=== PATIENT | female | born 1940 | race Caucasian/White ===

== ENCOUNTER 2017-11-09 15:58 | Emergency (ER) | payer MEDICARE ==
[~2017-11-09] VITALS: Ht 165.1 cm; Wt 62.6 kg
--- NOTE | 2017-11-09 16:30 | NUR ---
SENT BY DR LARIOS FOR PICCLINE PLACEMENT, NAD NOTED, VSS, RESP EVEN AND UNLABORED, WAITING FOR MD SANTOS.
--- NOTE | 2017-11-09 17:03 | NUR ---
Mynor lal in ED - 11/09/17 at 1704 by EZIO MID LINE NURSE AT THE BEDSIDE. MID LINE INSERTION ALMOST COMPLETE.
--- NOTE | 2017-11-09 17:03 | NUR ---
PICC LINE NURSE AT THE BEDSIDE. PICC LINE INSERTION ALMOST COMPLETE.
--- NOTE | 2017-11-09 17:23 | NUR ---
CXR IN PROGRESS AT THE BEDSIDE TO CONFIRM PLACEMENT OF PICC LINE.
[2017-11-09 17:24] LABS: BASOPHILS % (AUTO) 0.4 % (0.0-2.0); EOSINOPHILS % (AUTO) 0.6 % (0.0-6.0); HEMATOCRIT 30 % (33-45); HEMOGLOBIN 10.5 g/dL (11.5-14.8); LYMPHOCYTES # (AUTO) 1.2 /CMM (0.8-4.8); LYMPHOCYTES % (AUTO) 14.4 % (20.0-44.0); MEAN CORPUSCULAR HEMOGLOBIN 32 PG (26.0-33.0); MEAN CORPUSCULAR HGB CONC 35 g/dl (31.0-36.0); MEAN CORPUSCULAR VOLUME 93 fL (82-100); MONOCYTES # (AUTO) 0.4 /CMM (0.1-1.30); MONOCYTES % (AUTO) 5.1 % (2.0-12.0); NEUTROPHILS # (AUTO) 6.6 /CMM (1.8-8.9); NEUTROPHILS % (AUTO) 79.5 % (43.0-81.0); PLATELET COUNT (AUTO) 122 /CMM (150-450); RDW COEFFICIENT OF VARIATION 18.8 (11.5-15.0); RED BLOOD CELL COUNT(AUTO) 3.27 MIL/uL (4.0-5.2); WHITE BLOOD COUNT (AUTO) 8.2 K/uL (4.3-11.0)
--- NOTE | 2017-11-09 17:26 | NUR ---
PT LEFT FOR CT VIA RNEY
[2017-11-09 17:46] LABS: CALCIUM, SERUM 9.8 mg/dL (8.5-10.1); CARBON DIOXIDE 26 mmol/L (21-32); CHLORIDE 102 mmol/L (98-107); CREATININE 0.9 mg/dL (0.6-1.3); GLUCOSE 106 mg/dL (74-106); POTASSIUM 2.9 mmol/L (3.5-5.1); SODIUM SERUM 140 mmol/L (136-145); UREA NITROGEN, BLOOD 18 mg/dL (7-18)
--- NOTE | 2017-11-09 17:46 | NUR ---
PT RETURNED FROM CT.
[2017-11-09 17:49] LABS: TROPONIN I < 0.017 ng/mL (0.00-0.056)
[2017-11-09 17:50] LABS: BILIRUBIN,DIRECT 0.3 mg/dL (0.0-0.2); BILIRUBIN,TOTAL 1.1 mg/dL (0.2-1.0)
[2017-11-09 17:51] LABS: ALANINE AMINOTRANSFERASE 16 U/L (12-78); ALBUMIN 2.8 g/dL (3.4-5.0); ALKALINE PHOSPHATASE 118 U/L (46-116); ASPARTATE AMINOTRANSFERASE 25 U/L (15-37); TOTAL PROTEIN, SERUM 5.6 g/dL (6.4-8.2)
[2017-11-09 18:03] LABS: INR 1.1 (0.87-1.13)
[2017-11-09 18:24] LABS: BAND % (MANUAL) 2 % (0.0-5.0); LYMPHOCYTES % (MANUAL) 24 % (16-48); MONOCYTES % (MANUAL) 8 % (0-11.0); NEUTROPHILS % (MANUAL) 66 (42-76)
[2017-11-09] MEDS ORDERED: IOHEXOL-350 100 ML VIAL IV ONE (18:24)
[2017-11-09] MEDS ORDERED: IV NS 0.9% 250 ML IV ONE (18:25)
[2017-11-09] MEDS ORDERED: POTASSIUM CHLORIDE 20 MEQ TAB.PRT.SR PO ONE ×3 (18:30→18:50)
[2017-11-09] MEDS ORDERED: MAGNESIUM OXIDE 400 MG TABLET PO ONE (20:00)
[2017-11-09 20:20] VITALS: BP 126/65
--- NOTE | 2017-11-09 20:21 | NUR ---
Patient discharged to home in stable condition. Written and verbal after care instructions given. Patient verbalizes understanding of instruction.
== END 2017-11-09 20:23 | disposition home or self-care (01) ==
LOC: ER 16:01
DX: R42 Dizziness and giddiness (principal); Z45.2 Encounter for adjustment and management of vascular access device; E83.42 Hypomagnesemia; E87.6 Hypokalemia; R94.5 Abnormal results of liver function studies; D69.6 Thrombocytopenia, unspecified; I10 Essential (primary) hypertension; I70.0 Atherosclerosis of aorta; Z85.3 Personal history of malignant neoplasm of breast
CPT/HCPCS: 36415; 70450-TC; 71045-TC; 80048-TC; 80076-TC; 83735-TC; 84484-TC; 85025-TC; 85730-TC; A4606; C1751; J7050; Q9967; Z7610

== ENCOUNTER 2017-11-11 10:55 | Inpatient (IN) | payer MEDICARE ==
[~2017-11-11] VITALS: Ht 160 cm; Wt 54.4 kg
--- NOTE | 2017-11-11 10:55 | NUR ---
BIB NEIGHBOR C/O GENERALIZED WEAKNESS. PT ON W/C AMBULATORY W ASSIST. PLACED ON MONITOR. AWAITING MD ORDER
--- NOTE | 2017-11-11 10:55 | NUR ---
PT HAS RICHARD PICC LINE TRIPLE LUMEN PATENT
[2017-11-11 11:30] LABS: BASOPHILS % (AUTO) 0.4 % (0.0-2.0); EOSINOPHILS # (AUTO) 0.1 /CMM (0.0-0.7); EOSINOPHILS % (AUTO) 0.8 % (0.0-6.0); HEMATOCRIT 30 % (33-45); LYMPHOCYTES # (AUTO) 1.2 /CMM (0.8-4.8); LYMPHOCYTES % (AUTO) 13.8 % (20.0-44.0); MEAN CORPUSCULAR HEMOGLOBIN 32 PG (26.0-33.0); MEAN CORPUSCULAR HGB CONC 34 g/dl (31.0-36.0); MEAN CORPUSCULAR VOLUME 93 fL (82-100); MONOCYTES # (AUTO) 0.2 /CMM (0.1-1.30); MONOCYTES % (AUTO) 2.2 % (2.0-12.0); NEUTROPHILS # (AUTO) 7.4 /CMM (1.8-8.9); NEUTROPHILS % (AUTO) 82.8 % (43.0-81.0); PLATELET COUNT (AUTO) 123 /CMM (150-450); RDW COEFFICIENT OF VARIATION 19.9 (11.5-15.0); RED BLOOD CELL COUNT(AUTO) 3.16 MIL/uL (4.0-5.2); WHITE BLOOD COUNT (AUTO) 8.9 K/uL (4.3-11.0)
--- NOTE | 2017-11-11 11:31 | NUR ---
NOODLE MAKER AT BEDSIDE
[2017-11-11 11:46] LABS: INR 0.99 (0.85-1.15)
[2017-11-11 11:48] LABS: ALANINE AMINOTRANSFERASE 15 U/L (12-78); ALBUMIN 2.7 g/dL (3.4-5.0); ALKALINE PHOSPHATASE 115 U/L (46-116); ASPARTATE AMINOTRANSFERASE 29 U/L (15-37); BILIRUBIN,DIRECT 0.2 mg/dL (0.0-0.2); BILIRUBIN,TOTAL 0.9 mg/dL (0.2-1.0); CALCIUM, SERUM 9.7 mg/dL (8.5-10.1); CARBON DIOXIDE 24 mmol/L (21-32); CHLORIDE 102 mmol/L (98-107); GLUCOSE 144 mg/dL (74-106); POTASSIUM 3.5 mmol/L (3.5-5.1); SODIUM SERUM 139 mmol/L (136-145); TOTAL PROTEIN, SERUM 5.6 g/dL (6.4-8.2); UREA NITROGEN, BLOOD 19 mg/dL (7-18)
[2017-11-11 11:50] LABS: TROPONIN I < 0.017 ng/mL (0.00-0.056)
--- NOTE | 2017-11-11 12:10 | NUR ---
CALLED DR LARIOS ON THE PHONE WITH DR TATE.
--- NOTE | 2017-11-11 12:13 | NUR ---
VERBAL ORDER DR TATE IN AND OUT CATH
--- NOTE | 2017-11-11 12:23 | NUR ---
URINE SAMPLE COLLECTED SENT TO LAB
--- NOTE | 2017-11-11 12:24 | NUR ---
CALLED PRINCIPAL AUTOMATION ENGINEER REQUESTING A MS BED.
[2017-11-11] MEDS ORDERED: CYAN10006 IM (12:25)
[2017-11-11] MEDS ORDERED: POTA99TA4 PO (12:25)
[2017-11-11] MEDS ORDERED: ERGO500014 PO (12:25)
[2017-11-11] MEDS ORDERED: CYCL5TAB PO (12:25)
[2017-11-11] MEDS ORDERED: TRAM50TA2 PO (12:25)
[2017-11-11] MEDS ORDERED: CARV3.122 PO (12:25)
[2017-11-11] MEDS ORDERED: LETR2.5T PO (12:25)
[2017-11-11] MEDS ORDERED: CALC-1008 PO (12:25)
[2017-11-11] MEDS ORDERED: ATOR40TA PO (12:25)
[2017-11-11 12:26] LABS: APPEARANCE,URINE Cloudy (CLEAR); BILIRUBIN,URINE Negative (NEGATIVE); BLOOD, URINE Moderate Ery/uL (NEGATIVE); COLOR,URINE Yellow (YELLOW); KETONES,URINE Negative (NEGATIVE); LEUKOCYTE ESTERASE ,URINE Small (NEGATIVE); NITRITE, URINE Positive (NEGATIVE); PH,URINE 5.5 (5.0-8.0); PROTEIN,URINE 30 mg/dl (NEGATIVE); UGLUCOSE Negative (NEGATIVE); UROBILINOGEN,URINE 0.2 EU/dL (0.2)
[2017-11-11 12:30] LABS: BACTERIA,URINE 1+ /HPF (None Seen); SQUAMOUS EPITHELIAL CELL,UR Few /HPF (None Seen); URINE AMORPHOUS URATE Few /HPF (None Seen); WBC,URINE 21-50 /HPF (0-3)
[2017-11-11] MEDS ORDERED: IV NS 0.9% 1,000 ML BAG IV ONE (12:30)
--- NOTE | 2017-11-11 12:31 | NUR ---
CARLITO JOHNSON [phone] CELL (NEIGHBOR)
[2017-11-11] MEDS ORDERED: CEFTRIAXONE 1GM BAG (ER ONLY) 1 GM/50 ML PIGGYBACK IV ONE (13:00)
[2017-11-11] MEDS ORDERED: ONDANSETRON HCL/PF 4 MG/2 ML VIAL IVP PRN (13:30)
[2017-11-11] MEDS ORDERED: Z GUARD REMEDY 2 OZ OINT TP PRN (13:30)
[2017-11-11] MEDS ORDERED: MAG HYDROX/AL HYDROX/SIMETH 30 ML UDC PO PRN (13:30)
[2017-11-11] MEDS ORDERED: TRAMADOL HCL 50 MG TABLET PO PRN (13:30)
[2017-11-11] MEDS ORDERED: MAGNESIUM HYDROXIDE 30 ML UDC PO PRN (13:30)
[2017-11-11] MEDS ORDERED: ACETAMINOPHEN 325 MG TABLET PO PRN (13:30)
[2017-11-11] MEDS ORDERED: HYDROCODONE/APAP 5/325MG 1 EACH TABLET PO PRN (13:30)
[2017-11-11] MEDS ORDERED: CEFTRIAXONE 1 G in IV NS 0.9% 50 ML IV ONE (13:30)
--- NOTE | 2017-11-11 14:22 | NUR ---
CALLED NURSING SUP REQUESTING A BED.
--- NOTE | 2017-11-11 16:12 | NUR ---
GAVE REPORT TO ZAIDA . DX UTI ADMITTING XIOMY STEELE
--- NOTE | 2017-11-11 16:30 | NUR ---
MS RN OPENING NOTES PT RECEIVED A&0X3, PT TOLERATING ROOM AIR WITHOUT SOB AND SAO2 WNL AT 98%. PT DENIES PAIN AT REST BUT HAS SIGNIFICANT LOWER BACK PAIN WHEN MOVING. PT WITH PICC LINE AT L UA INTACT AND OPERATIONAL. PT SKIN INTACT WITH MINOR BI.LAT HAND BRUISING. PT INCONT WITH DIAPER, LAST BM TODAY. PT BELONGING LIST SIGNED. PT VITALS ENTERED. BED IN LOWEST LOCKED POSITION WITH HNDARAILOSX2 AND CALL OWENS WITHIN REACH. PT COMFORTABLE AND IS WITHOUT CONCERN OR COMPLAINT AT THIS TIME.
[2017-11-11 16:58] VITALS: BP 139/67
--- NOTE | 2017-11-11 17:00 | NUR ---
RN NOTES. PHARMACY CONTACTED REGARDING 1330 IV AB, PHARMACY TO RESCHEDULE.
[2017-11-11] MEDS: CALCIUM CARB 600MG /VIT D 1 EACH TABLET PO SCH (17:42)
[2017-11-11] MEDS: CARVEDILOL 3.125 MG TABLET PO SCH (17:45)
[2017-11-11] MEDS: ENOXAPARIN SODIUM 40 MG/0.4 ML DISP.SYRIN SQ SCH (17:48)
[2017-11-11] MEDS: IV NS 0.9% 1,000 ML IV PRN (18:15)
--- NOTE | 2017-11-11 19:12 | NUR ---
MS RN CLOSING NOTES. PT REMAINS A&0X3, TOLERATING ROOM AIR AND DENIES PAIN AT THIS TIME. PT WITH L UA PICC LINE INTACT AND OPERATIONAL. ALL DAY NURSE DUTIES ATTENDED TO. PT BED IN LOWEST LOCKED POSITION WITH HANDRAILSX2 AND CALL OWENS WITHIN REACH. PT IS WITHOUT CONCERN OR COMPLAINT AT THIS TIME. WILL ENDORSE TO NIGHT NURSE.
--- NOTE | 2017-11-11 19:15 | NUR ---
RN OPENING NOTES: RECEIVED PT ON BED AWAKE AND ALERT X2, ON ROOM AIR, NOT IN APPARENT DISTRESS. NO COMPLAINTS OF PAIN AT THIS TIME. IV ACCESS PATENT AND INTACT, IVF INFUSING ORDERED. SAFETY MEASURES ENSURED. CALL LIGHT WITHIN REACH. CONTINUOUSLY MONITORED ACCORDINGLY.
[2017-11-11 20:00] VITALS: BP 107/58
[2017-11-11] MEDS: CYCLOBENZAPRINE 10 MG TABLET PO SCH (21:21)
[2017-11-11] MEDS: CEFTRIAXONE 1 G in IV D5W 50 ML IV SCH (21:21)
--- NOTE | 2017-11-12 | NUR ---
RN NOTES: DUE MEDS GIVEN. SKIN CARE RENDERED. TRANSFER OF CARE REPORT GIVEN TO DEBORAH GRIFFITH.
[2017-11-12 04:00] VITALS: BP 106/53
[2017-11-12 06:26] LABS: BASOPHILS # (AUTO) 0.1 /CMM (0.0-0.2); BASOPHILS % (AUTO) 1.1 % (0.0-2.0); EOSINOPHILS % (AUTO) 0.7 % (0.0-6.0); HEMATOCRIT 25 % (33-45); HEMOGLOBIN 8.2 g/dL (11.5-14.8); LYMPHOCYTES # (AUTO) 1.3 /CMM (0.8-4.8); LYMPHOCYTES % (AUTO) 18.3 % (20.0-44.0); MEAN CORPUSCULAR HEMOGLOBIN 32 PG (26.0-33.0); MEAN CORPUSCULAR HGB CONC 33 g/dl (31.0-36.0); MEAN CORPUSCULAR VOLUME 95 fL (82-100); MONOCYTES # (AUTO) 0.4 /CMM (0.1-1.30); MONOCYTES % (AUTO) 5.3 % (2.0-12.0); NEUTROPHILS # (AUTO) 5.2 /CMM (1.8-8.9); NEUTROPHILS % (AUTO) 74.6 % (43.0-81.0); PLATELET COUNT (AUTO) 95 /CMM (150-450); RDW COEFFICIENT OF VARIATION 20.6 (11.5-15.0)
[2017-11-12 06:41] LABS: CALCIUM, SERUM 8.9 mg/dL (8.5-10.1); CARBON DIOXIDE 24 mmol/L (21-32); CHLORIDE 108 mmol/L (98-107); CREATININE 0.8 mg/dL (0.6-1.3); GLUCOSE 79 mg/dL (74-106); MAGNESIUM 1.4 mg/dL (1.8-2.4); PHOSPHORUS 3.4 mg/dL (2.5-4.9); POTASSIUM 3.5 mmol/L (3.5-5.1); SODIUM SERUM 142 mmol/L (136-145); UREA NITROGEN, BLOOD 17 mg/dL (7-18)
[2017-11-12 06:47] LABS: CHOLESTEROL 114 mg/dL (<200); HDL CHOLESTEROL 40 mg/dL (40-60); LDL 54 mg/dL (0-99); TRIGLYCERIDES 116 mg/dL (30-150)
--- NOTE | 2017-11-12 07:15 | NUR ---
MS RN CLOSING NOTE PT REMAINED STABLE DURING SHIFT. ALL NEEDS ATTENDED TO PROMPTLY. KEPT CLEAN AND DRY. CALL LIGHT WITHIN REACH. WILL ENDORSE TO NEXT SHIFT FOR CONTINUITY OF CARE.
[2017-11-12] MEDS: CALCIUM CARB 600MG /VIT D 1 EACH TABLET PO SCH (09:20)
[2017-11-12] MEDS: CARVEDILOL 3.125 MG TABLET PO SCH ×2 (09:21→17:00)
[2017-11-12] MEDS: ATORVASTATIN 40 MG TABLET PO SCH (09:22)
[2017-11-12] MEDS: LETROZOLE 2.5 MG TABLET PO SCH (09:22)
[2017-11-12 09:31] LABS: BAND % (MANUAL) 1 % (0.0-5.0); LYMPHOCYTES % (MANUAL) 19 % (16-48); MONOCYTES % (MANUAL) 6 % (0-11.0); NEUTROPHILS % (MANUAL) 74 (42-76)
[2017-11-12] MEDS: Magnesium 1GM/D5W 100ML PREMIX 100 ML IV SCH ×4 (11:53→16:00)
[2017-11-12] MEDS: IV NS 0.9% 1,000 ML IV PRN (11:56)
[2017-11-12 12:00] VITALS: BP 125/68
--- NOTE | 2017-11-12 12:07 | NUR ---
Social service consult requested by pt's nurse for advance directives information. CEASAR met with pt. bedside with her caregiver Yuri Meza bedside. Yuri can be reached at -home and cell number is . Pt. is alert and oriented x 3. CEASAR explained the advance directives process to pt. and her caregiver and gave them the Advance Directives form.
[2017-11-12] MEDS ORDERED: CEFTRIAXONE 1 G in IV D5W 50 ML IV SCH (13:00)
--- NOTE | 2017-11-12 15:42 | NUR ---
MS EQUIPMENT ANALYST NOTE, CLARIFIED ORDER FOR VITAMIN B12 TO BE GIVEN PER PCP MD MARTINO 8 DOSES GIVEN... FOLLOWS, 2 WEEKS OF INJ ONCE A WEEK STARTING THIS WEDNESDAY THEN EVERY 2 WEEKS INJ FOR 4 WEEKS THEN MONTHLY. VITAMIN D IS TO BE GIVEN WEEKLY.
[2017-11-12 16:50] LABS: HEMOGLOBIN 7.9 g/dL (11.5-14.8)
--- NOTE | 2017-11-12 18:21 | NUR ---
MS LOPZE NOTE, PATIENT DEVELOPED FEVER 104.2 AT AROUND 1530 HRS AND PLACED ICED BAGS ON PATIENT. CHECKED TEMPERATURE HOUR LATER AND TEMP WAS 103. GAVE PATIENT TYLENOL PRN AFTER PATIENT CAME BACK FROM CT SCAN. TEMPERATURE CURRENTLY AT 101.2. WILL CONTINUE TO MONITOR AND ASSESS PATIENT CONDITION. WILL NOTIFY SCIENCE EDUCATION PROFESSOR NURSE. HEMODIALYSIS TO BE COMPLETED TODAY TO REMOVE CONTRAST AND TO DRAW BLOOD FOR CULTURE. SCIENCE EDUCATION PROFESSOR NURSE TO F/U. Addendum: 11/12/17 at 1841 by EZEQUIEL RYAN LVN WRONG PATIENT CHART. WRONG PATIENT CHART.
--- NOTE | 2017-11-12 18:42 | NUR ---
MS TRACING LATHE SET UP OPERATOR NOTE, CRITICAL BLOOD VALUE REPORTED FROM PHARMACY. BLOOD CULTURE IS POSITIVE FOR GRAM POSITIVE COCCYX IN CHAINS. RN AWARE. STEELE INFORMED. AWAITING ORDERS. WILL ENDORSE TO EXPLOSIVES WORKER NURSE.
--- NOTE | 2017-11-12 19:30 | NUR ---
MS RN INITIAL NOTE PT RECEIVED AWAKE IN BED. A/O X2 AND ABLE TO VERBALIZE NEEDS. ON ROOM AIR AND SATURATING WELL. BREATHING EVEN AND UNLABORED. IV RICHARD PICC LINE CLEAN, DRY, PATENT WITH FLUIDS INFUSING. NO C/O PAIN OR DISCOMFORT AT THIS TIME. CALL LIGHT WITHIN REACH. WILL CONTINUE TO MONITOR.
[2017-11-12 20:00] VITALS: BP 109/62
[2017-11-12] MEDS: CEFTRIAXONE 1 G in IV D5W 50 ML IV SCH (20:35)
[2017-11-12] MEDS: CYCLOBENZAPRINE 10 MG TABLET PO SCH (21:12)
[2017-11-12] MEDS: ENOXAPARIN SODIUM 40 MG/0.4 ML DISP.SYRIN SQ SCH (21:18)
[2017-11-13] MEDS: HYDROCODONE/APAP 10/325MG 1 EA TABLET PO PRN ×2 (00:24→13:30)
[2017-11-13 04:00] VITALS: BP 92/54
[2017-11-13 06:34] LABS: CALCIUM, SERUM 8.2 mg/dL (8.5-10.1); CARBON DIOXIDE 26 mmol/L (21-32); CHLORIDE 109 mmol/L (98-107); CREATININE 0.7 mg/dL (0.6-1.3); GLUCOSE 82 mg/dL (74-106); MAGNESIUM 2.1 mg/dL (1.8-2.4); POTASSIUM 3.4 mmol/L (3.5-5.1); SODIUM SERUM 141 mmol/L (136-145); UREA NITROGEN, BLOOD 16 mg/dL (7-18)
--- NOTE | 2017-11-13 07:30 | NUR ---
MS RN CLOSING NOTE PT REMAINED STABLE DURING SHIFT. ALL NEEDS ATTENDED TO PROMPTLY. KEPT CLEAN AND DRY. REPOSITIONED Q2H. CALL LIGHT WITHIN REACH. WILL ENDORSE TO NEXT SHIFT FOR CONTINUITY OF CARE.
--- NOTE | 2017-11-13 07:35 | NUR ---
RESTING COMFORTABLY, SKIN PALE. NO NOTED DISTRESS. WILL CONTINUE TO MONITOR.
[2017-11-13 08:17] VITALS: BP 125/66
[2017-11-13] MEDS ORDERED: ERGOCALCIFEROL (VITAMIN D 2) 50,000 UNIT CAPSULE PO SCH (09:00)
[2017-11-13] MEDS: ATORVASTATIN 40 MG TABLET PO SCH (09:02)
[2017-11-13] MEDS: CALCIUM CARB 600MG /VIT D 1 EACH TABLET PO SCH (09:02)
[2017-11-13] MEDS: LETROZOLE 2.5 MG TABLET PO SCH (09:02)
[2017-11-13] MEDS: CARVEDILOL 3.125 MG TABLET PO SCH ×2 (09:02→17:54)
[2017-11-13] MEDS ORDERED: POTASSIUM CHLORIDE 20 MEQ TAB.PRT.SR PO ONE (11:00)
[2017-11-13] MEDS: IV NS 0.9% 1,000 ML IV PRN (11:48)
--- NOTE | 2017-11-13 12:24 | NUR ---
RESTING IN BED. NO C/O PAIN. WILL CONT TO MONITOR.
[2017-11-13 12:29] LABS: BASOPHILS % (AUTO) 0.6 % (0.0-2.0); EOSINOPHILS % (AUTO) 0.8 % (0.0-6.0); HEMATOCRIT 22 % (33-45); HEMOGLOBIN 7.3 g/dL (11.5-14.8); LYMPHOCYTES # (AUTO) 1.1 /CMM (0.8-4.8); LYMPHOCYTES % (AUTO) 19.4 % (20.0-44.0); MEAN CORPUSCULAR HEMOGLOBIN 31 PG (26.0-33.0); MEAN CORPUSCULAR HGB CONC 33 g/dl (31.0-36.0); MEAN CORPUSCULAR VOLUME 95 fL (82-100); MONOCYTES # (AUTO) 0.8 /CMM (0.1-1.30); MONOCYTES % (AUTO) 14.1 % (2.0-12.0); NEUTROPHILS # (AUTO) 3.5 /CMM (1.8-8.9); NEUTROPHILS % (AUTO) 65.1 % (43.0-81.0); PLATELET COUNT (AUTO) 82 /CMM (150-450); RDW COEFFICIENT OF VARIATION 21.1 (11.5-15.0); RED BLOOD CELL COUNT(AUTO) 2.35 MIL/uL (4.0-5.2); WHITE BLOOD COUNT (AUTO) 5.4 K/uL (4.3-11.0)
[2017-11-13 13:21] LABS: BAND % (MANUAL) 3 % (0.0-5.0); LYMPHOCYTES % (MANUAL) 23 % (16-48); MONOCYTES % (MANUAL) 10 % (0-11.0); NEUTROPHILS % (MANUAL) 64 (42-76)
[2017-11-13 16:00] VITALS: BP 122/114
[2017-11-13] MEDS: LIDOCAINE 5% (PATCH) 1 EA PATCH TP SCH (17:54)
[2017-11-13 18:06] LABS: INR 1.1 (0.87-1.13)
--- NOTE | 2017-11-13 18:39 | NUR ---
C/O PAIN ON R UPPER BACK, LIDODERM APPLIED ORDERED. EATING WELL. Addendum: 11/13/17 at 1842 by COBY SAMSON RN NO S/S OF ACUTE DISTRESS NOTED. WILL CONTINUE TO MONITOR.
--- NOTE | 2017-11-13 19:20 | NUR ---
RN NOTES RECEIVED PT ALERT AND ORIENTED X 2, ABLE TO VERBALIZE NEEDS, NO SOB, BREATHING EVEN AND UNLABORED, NO C/O PAIN, IN NO ACUTE DISTRESS AT THIS TIME.PLACED CALL LIGHT WITHIN EASY REACH. PLACED BED IN LOW POSITION AND LOCKED IN PLACE. WILL CONTINUE TO MONITOR.
[2017-11-13 20:00] VITALS: BP 106/55
[2017-11-13] MEDS: CEFTRIAXONE 1 G in IV D5W 50 ML IV SCH (20:16)
[2017-11-13] MEDS: CYCLOBENZAPRINE 10 MG TABLET PO SCH (21:49)
[2017-11-14 04:00] VITALS: BP 120/57
[2017-11-14] MEDS: IV NS 0.9% 1,000 ML IV PRN (05:17)
--- NOTE | 2017-11-14 06:02 | NUR ---
RN NOTES NOTED PATIENT TO BE GETTING UP WITHOUT ASSISTANCE, RE-ORIENTED PATIENT TO USE THE CALL LIGHT AND REMINDED OF SAFETY. PATIENT VERBALIZED UNDERSTANDING. CALL LIGHT PLACED WITHIN EASY REACH. BED PLACED IN LOW POSITION AND LOCKED IN PLACE, BED ALARMS ON. ALL PATIENT'S NEEDS ATTENDED TO. WILL CONTINUE TO MONITOR.
--- NOTE | 2017-11-14 06:32 | NUR ---
RN CLOSING NOTES PATIENT IN BED, ASLEEP BUT EASILY AROUSABLE, NO SOB NOTED, BREATHING EVEN AND UNLABORED, NO C/O PAIN AT THIS TIME, IN NO ACUTE DISTRESS. PATIENT IS ALERT AND ORIENTED X 2, FORGETFUL, VERBALLY RESPONSIVE AND IS ABLE TO MAKE NEEDS KNOWN, GOOD PERICARE GIVEN, ALL PATIENT'S NEEDS ATTENDED TO, CALL LIGHT PLACED WITHIN EASY REACH, PLACED BED IN LOW POSITION AND LOCKED IN PLACE.
[2017-11-14 06:55] LABS: CALCIUM, SERUM 8.8 mg/dL (8.5-10.1); CARBON DIOXIDE 22 mmol/L (21-32); CHLORIDE 112 mmol/L (98-107); CREATININE 0.8 mg/dL (0.6-1.3); GLUCOSE 88 mg/dL (74-106); POTASSIUM 4.2 mmol/L (3.5-5.1); SODIUM SERUM 145 mmol/L (136-145); UREA NITROGEN, BLOOD 15 mg/dL (7-18)
[2017-11-14 06:57] LABS: BASOPHILS # (AUTO) 0.2 /CMM (0.0-0.2); BASOPHILS % (AUTO) 1.7 % (0.0-2.0); EOSINOPHILS # (AUTO) 0.1 /CMM (0.0-0.7); EOSINOPHILS % (AUTO) 0.9 % (0.0-6.0); HEMATOCRIT 24 % (33-45); HEMOGLOBIN 8.2 g/dL (11.5-14.8); LYMPHOCYTES # (AUTO) 1.6 /CMM (0.8-4.8); LYMPHOCYTES % (AUTO) 16.1 % (20.0-44.0); MEAN CORPUSCULAR HEMOGLOBIN 32 PG (26.0-33.0); MEAN CORPUSCULAR HGB CONC 34 g/dl (31.0-36.0); MEAN CORPUSCULAR VOLUME 96 fL (82-100); MONOCYTES # (AUTO) 0.4 /CMM (0.1-1.30); NEUTROPHILS # (AUTO) 7.8 /CMM (1.8-8.9); NEUTROPHILS % (AUTO) 77.3 % (43.0-81.0); PLATELET COUNT (AUTO) 114 /CMM (150-450); RDW COEFFICIENT OF VARIATION 21.2 (11.5-15.0); RED BLOOD CELL COUNT(AUTO) 2.54 MIL/uL (4.0-5.2); WHITE BLOOD COUNT (AUTO) 10.1 K/uL (4.3-11.0)
--- NOTE | 2017-11-14 07:05 | NUR ---
MS RN OPENING NOTES. PT RECEIVED A&0X2, CONFUSED, VERY SLEEPY. PT WITH 02 VIA NC AT 3LPM, RESP SHALLOW BUT REGULAR. PT REPORTING NO PAIN. PT WITH IVC AT R HAND WITH NS TKO. PT BED IN LOWEST LOCKED POSITION WITH HANDRAILSX3 AND BED ALARM ON. PT BRIEFED ON TODAY'S POC, WILL REORIENTATE NEEDED. Addendum: 11/14/17 at 1100 by ZAIDA PIPER RN WRONG PT. MS RN OPENING NOTES. PT RECEIVED A&0X2, CONFUSED. PT TOLERATING ROOM AIR WITHOUT SOB OR S/S OF RESP DISTRESS. PT REPORTING NO PAIN.L UA PICC LINE WITH NS AT 60CC/HR. PT BED IN LOWEST LOCKED POSITION WITH HANDRAILSX3 AND BED ALARM ON. PT BRIEFED ON TODAY'S POC, WILL REORIENTATE NEEDED.
[2017-11-14 08:00] VITALS: BP 179/81
[2017-11-14] MEDS: CALCIUM CARB 600MG /VIT D 1 EACH TABLET PO SCH (09:24)
[2017-11-14] MEDS: ATORVASTATIN 40 MG TABLET PO SCH (09:24)
[2017-11-14] MEDS: CARVEDILOL 3.125 MG TABLET PO SCH ×2 (09:25→17:15)
[2017-11-14] MEDS: LETROZOLE 2.5 MG TABLET PO SCH (09:27)
[2017-11-14 12:30] LABS: BAND % (MANUAL) 1 % (0.0-5.0); LYMPHOCYTES % (MANUAL) 30 % (16-48); MONOCYTES % (MANUAL) 4 % (0-11.0); MYELOCYTES % 1 % (0-0); NEUTROPHILS % (MANUAL) 60 (42-76); REACTIVE LYMPHOCYTES 4 % (0-0)
[2017-11-14 16:00] VITALS: BP 119/77
[2017-11-14] MEDS: LIDOCAINE 5% (PATCH) 1 EA PATCH TP SCH (17:11)
--- NOTE | 2017-11-14 19:25 | NUR ---
MS RN CLOSING NOTES. PT A&0X2, WITH INTERMITTENT CONFUSED. PT TOLERATING ROOM AIR WITHOUT S/S OF RESP DISTRESS AND CURRENTLY REPORTING NO PAIN .L UA PICC LINE WITH NS AT TKO. PT WITHOUT BM FOR OB SAMPLE. PT BED IN LOWEST LOCKED POSITION WITH HANDRAILSX3 AND BED ALARM ON. ALL DAY DUTIES ATTENDED TO AND PT ENDORSED TO NIGHT NURSE.
--- NOTE | 2017-11-14 19:30 | NUR ---
MS RN INITIAL NOTES RECEIVED PATIENT AWAKE ALERT AND ORIENTED, ABLE TO MAKE NEEDS KNOWN. DENIES SOB. DENIES PAIN OR DISCOMFORT, STATES SHE ONLY FEELS PAIN WHEN SHE MOVES. SKIN WARM AND DRY TO TOUCH. WITH RICHARD PICC LINE TKO. HOB ELEVATED. SIDE RAILS UP AND LOCKED. BED KEPT AT LOWEST POSITION. CALL LIGHT KEPT WITHIN EASY REACH. WILL CONTINUE TO MONITOR.
[2017-11-14 20:00] VITALS: BP 153/81
[2017-11-14] MEDS: CEFTRIAXONE 1 G in IV D5W 50 ML IV SCH (20:41)
[2017-11-14] MEDS: CYCLOBENZAPRINE 10 MG TABLET PO SCH (21:20)
[2017-11-15] VITALS (8 sets, daily range): BP systolic 123–155; BP diastolic 56–73
[2017-11-15 06:44] LABS: BASOPHILS # (AUTO) 0.1 /CMM (0.0-0.2); BASOPHILS % (AUTO) 1.2 % (0.0-2.0); EOSINOPHILS # (AUTO) 0.1 /CMM (0.0-0.7); EOSINOPHILS % (AUTO) 0.8 % (0.0-6.0); HEMATOCRIT 24 % (33-45); HEMOGLOBIN 7.9 g/dL (11.5-14.8); LYMPHOCYTES # (AUTO) 1.3 /CMM (0.8-4.8); LYMPHOCYTES % (AUTO) 16.3 % (20.0-44.0); MEAN CORPUSCULAR HEMOGLOBIN 31 PG (26.0-33.0); MEAN CORPUSCULAR HGB CONC 33 g/dl (31.0-36.0); MEAN CORPUSCULAR VOLUME 94 fL (82-100); MONOCYTES # (AUTO) 0.3 /CMM (0.1-1.30); NEUTROPHILS # (AUTO) 6.3 /CMM (1.8-8.9); NEUTROPHILS % (AUTO) 77.7 % (43.0-81.0); PLATELET COUNT (AUTO) 90 /CMM (150-450); RDW COEFFICIENT OF VARIATION 21.1 (11.5-15.0); RED BLOOD CELL COUNT(AUTO) 2.55 MIL/uL (4.0-5.2); WHITE BLOOD COUNT (AUTO) 8.1 K/uL (4.3-11.0)
[2017-11-15 06:57] LABS: CALCIUM, SERUM 8.8 mg/dL (8.5-10.1); CARBON DIOXIDE 22 mmol/L (21-32); CHLORIDE 108 mmol/L (98-107); CREATININE 0.6 mg/dL (0.6-1.3); GLUCOSE 86 mg/dL (74-106); MAGNESIUM 1.6 mg/dL (1.8-2.4); PHOSPHORUS 3.3 mg/dL (2.5-4.9); POTASSIUM 3.3 mmol/L (3.5-5.1); SODIUM SERUM 139 mmol/L (136-145); UREA NITROGEN, BLOOD 10 mg/dL (7-18)
[2017-11-15 07:35] LABS: IRON, SERUM 50 ug/dl (50-175); TOTAL IRON BINDING CAPACITY 180 ug/dl (250-450)
--- NOTE | 2017-11-15 07:36 | NUR ---
MS RN CLOSING NOTES NO SIGNIFICANT CHANGES OVERNIGHT. NO RESPIRATORY DISTRESS NOTED. KEPT CLEAN AND DRY. TURNED AND REPOSITIONED Q2 AND PRN. REORIENTED NEEDED. FALL PRECAUTIONS OBSERVED. HOB ELEVATED. SIDE RAILS UP AND LOCKED. BED KEPT AT LOWEST POSITION. CALL LIGHT KEPT WITHIN EASY REACH. CONTINUITY OF CARE ENDORSED TO AM NURSE.
[2017-11-15 07:50] LABS: EOSINOPHILS % (MANUAL) 3 % (0-4); LYMPHOCYTES % (MANUAL) 15 % (16-48); MONOCYTES % (MANUAL) 1 % (0-11.0); NEUTROPHILS % (MANUAL) 81 (42-76)
[2017-11-15] MEDS ORDERED: CYANOCOBALAMIN 1,000 MCG/ML VIAL IM SCH (09:00)
[2017-11-15] MEDS ORDERED: Magnesium 1GM/D5W 100ML PREMIX 100 ML IV SCH (09:22)
[2017-11-15] MEDS ORDERED: POTASSIUM CHLORIDE 20 MEQ TAB.PRT.SR PO SCH (09:30)
[2017-11-15] MEDS ORDERED: SOD FERRIC GLUC 125 MG in IV NS 0.9% 100 ML IV SCH ×2 (09:30→14:00)
[2017-11-15] MEDS ORDERED: POTASSIUM CHLORIDE 20 MEQ TAB.PRT.SR PO ONE (09:30)
[2017-11-15] MEDS: Magnesium 1GM/D5W 100ML PREMIX 100 ML IV SCH ×2 (09:50→12:03)
[2017-11-15] MEDS: LETROZOLE 2.5 MG TABLET PO SCH (09:51)
[2017-11-15] MEDS: PANTOPRAZOLE 40 MG TABLET.DR PO SCH ×2 (09:51→21:34)
[2017-11-15] MEDS: CALCIUM CARB 600MG /VIT D 1 EACH TABLET PO SCH (09:52)
[2017-11-15] MEDS: ATORVASTATIN 40 MG TABLET PO SCH (09:52)
[2017-11-15] MEDS: CARVEDILOL 3.125 MG TABLET PO SCH ×2 (09:52→16:55)
[2017-11-15] MEDS: LIDOCAINE 5% (PATCH) 1 EA PATCH TP SCH (16:54)
[2017-11-15] MEDS: BOOST PLUS FOOD-CHOCLATE 237 ML BOX PO SCH (17:00)
--- NOTE | 2017-11-15 19:21 | NUR ---
RN NOTE PT HAD 1 UNIT OF TRANSFUSION OF PRBC, TOLERATED WELL. NO S/S OF REACTION NOTED.
[2017-11-15] MEDS: CEFTRIAXONE 1 G in IV D5W 50 ML IV SCH (20:29)
[2017-11-15] MEDS: CYCLOBENZAPRINE 10 MG TABLET PO SCH ×2 (22:00→23:10)
[2017-11-16 06:00] VITALS: BP 147/65
[2017-11-16 06:45] LABS: BASOPHILS % (AUTO) 0.5 % (0.0-2.0); EOSINOPHILS # (AUTO) 0.1 /CMM (0.0-0.7); EOSINOPHILS % (AUTO) 0.7 % (0.0-6.0); HEMATOCRIT 29 % (33-45); HEMOGLOBIN 9.8 g/dL (11.5-14.8); LYMPHOCYTES % (AUTO) 11.9 % (20.0-44.0); MEAN CORPUSCULAR HEMOGLOBIN 32 PG (26.0-33.0); MEAN CORPUSCULAR HGB CONC 34 g/dl (31.0-36.0); MEAN CORPUSCULAR VOLUME 94 fL (82-100); MONOCYTES # (AUTO) 0.3 /CMM (0.1-1.30); MONOCYTES % (AUTO) 4.1 % (2.0-12.0); NEUTROPHILS # (AUTO) 6.9 /CMM (1.8-8.9); NEUTROPHILS % (AUTO) 82.8 % (43.0-81.0); PLATELET COUNT (AUTO) 77 /CMM (150-450); RDW COEFFICIENT OF VARIATION 19.3 (11.5-15.0); RED BLOOD CELL COUNT(AUTO) 3.09 MIL/uL (4.0-5.2); WHITE BLOOD COUNT (AUTO) 8.3 K/uL (4.3-11.0)
[2017-11-16 06:51] LABS: CALCIUM, SERUM 8.8 mg/dL (8.5-10.1); CARBON DIOXIDE 22 mmol/L (21-32); CHLORIDE 106 mmol/L (98-107); CREATININE 0.6 mg/dL (0.6-1.3); GLUCOSE 83 mg/dL (74-106); MAGNESIUM 1.9 mg/dL (1.8-2.4); PHOSPHORUS 3.6 mg/dL (2.5-4.9); POTASSIUM 3.9 mmol/L (3.5-5.1); SODIUM SERUM 139 mmol/L (136-145); UREA NITROGEN, BLOOD 8 mg/dL (7-18)
--- NOTE | 2017-11-16 07:29 | NUR ---
MS RN OPENING NOTES PATIENT RECEIVED AWAKE ALERT AND ORIENTED X 2-3. ABLE TO MAKE NEEDS KNOWN, DENIES PAIN OR DISCOMFORTS AT THIS TIME. PT ASKED AGAIN IF SHE WANTS TO GO FOR EGD AND COLONOSCOPY AND STILL REFUSED. ON ROOM AIR, BREATHING EVEN AND UNLABORED. SKIN WARM AND DRY TO TOUCH. RICHARD PICC LINE INTACT AND PATENTY, FLUSHES WELL. HOB ELEVATED. SIDE RAILS UP AND LOCKED. BED KEPT AT LOWEST POSITION. CALL LIGHT KEPT WITHIN EASY REACH. WILL CONTINUE TO MONITOR.
--- NOTE | 2017-11-16 07:41 | NUR ---
RN NOTE NO ACUTE CHANGES DURING MY SHIFT, NO BLEEDING NOTED, PATIENT IS ALERT/ORIENTED X 3, NO RESPIRATORY DISTRESS NOTED, PATIENT IS REFUSING PROCEDURE EGD/COLONOSCOPY, PER PATIENT SHE TALKED TO FILM REPLACEMENT ORDERER MICHELLE AND SHE REFUSED ALREADY AND SHE IS NOT GOING TO AGREE AGAIN, ALL SAFETY MEASURES TAKEN, BED ALARM ACTIVATED, CALL LIGHT WITHIN, ALL BELONGINGS WITHIN REACH, BED IN THE LOWEST POSITION
[2017-11-16 07:42] LABS: OCCULT BLOOD STOOL NEGATIVE (NEGATIVE)
[2017-11-16 08:00] VITALS: BP 170/83
[2017-11-16] MEDS: ATORVASTATIN 40 MG TABLET PO SCH (08:53)
[2017-11-16] MEDS: CALCIUM CARB 600MG /VIT D 1 EACH TABLET PO SCH (08:53)
[2017-11-16] MEDS: PANTOPRAZOLE 40 MG TABLET.DR PO SCH (08:54)
[2017-11-16] MEDS: CARVEDILOL 3.125 MG TABLET PO SCH ×2 (08:54→17:12)
[2017-11-16] MEDS: LETROZOLE 2.5 MG TABLET PO SCH (08:55)
[2017-11-16] MEDS: BOOST PLUS FOOD-CHOCLATE 237 ML BOX PO SCH ×2 (09:36→16:11)
[2017-11-16 10:52] LABS: BAND % (MANUAL) 5 % (0.0-5.0); LYMPHOCYTES % (MANUAL) 23 % (16-48); MONOCYTES % (MANUAL) 2 % (0-11.0); NEUTROPHILS % (MANUAL) 62 (42-76); REACTIVE LYMPHOCYTES 8 % (0-0)
--- NOTE | 2017-11-16 15:45 | NUR ---
RN NOTES PATIENT FOR DISCHARGE TO [facility], PICK-UP TIME IS 1700, REPORT GIVEN TO NURSE YANCY RN.
[2017-11-16 16:00] VITALS: BP 133/81
[2017-11-16] MEDS: LIDOCAINE 5% (PATCH) 1 EA PATCH TP SCH (16:08)
[2017-11-16 17:12] VITALS: BP 133/81
--- NOTE | 2017-11-16 18:15 | NUR ---
RN NOTES PARAMEDICS CAME TO PICK-UP PT AND NOTED WITH HR OF 118-120, PT IN NO ACUTE SIGNS OF DISTRESS. A/O X3, NO COMPLAINTS OF PAIN OR DISCOMFORTS VOICED. CALLED JAVIER OF [facility] AND SAID THAT IT'S OK TO ADMIT PT. PARAMEDICS AWARE.
--- NOTE | 2017-11-16 18:42 | NUR ---
MS RN DISCHARGED NOTES PT CLEARED FOR DISCHARGE TO [facility]. A/O X3, VERBALLY RESPONSIVE WITH NO C/O PAIN OR DISCOMFORTS DURING DISCHARGE. SKIN IS INTACT. V/S TAKEN AND RECORDED. PICC LINE NOT REMOVED BECAUSE PT WILL CONTINUE WITH IV ANTIBIOTIC AT SNF. FLU ND PNA VACCINES NOT GIVEN, PT VERBALIZED THAT SHE RECEIVED THEM ALREADY BUT COULDN'T RECALL DATE. HEALTH TEACHINGS GIVEN AND VERBALIZED UNDERSTANDING. PT LEFT UNIT AT 1830 VIA RNEY WITH 3 EMT'S. JOB PRINTER LACHO AND CHARGE NURSE AWARE OF DISCHARGE.
[2017-11-17 08:10] LABS: IMMUNOGLOBULIN A, SERUM 21 mg/dL (64-422); IMMUNOGLOBULIN G, SERUM 379 mg/dL (700-1600); IMMUNOGLOBULIN M, SERUM 14 mg/dL (26-217)
[2017-11-17 11:19] LABS: *SPE A/G RATIO 1.6 (0.7-1.7); *SPE ALBUMIN 2.8 g/dL (2.9-4.4); *SPE ALPHA-1-GLOBULIN 0.2 g/dL (0.0-0.4); *SPE ALPHA-2-GLOBULIN 0.6 g/dL (0.4-1.0); *SPE BETA GLOBULIN 0.6 g/dL (0.7-1.3); *SPE GLOBULIN, TOTAL 1.7 g/dL (2.2-3.9); *SPE M-SPIKE Not Observed g/dL (Not Observed); *SPEGAMMA GLOBULIN 0.3 g/dL (0.4-1.8)
[2017-11-18 09:28] LABS: CANCER AG, 15-3 230.5 U/mL (0.0-25.0)
== END 2017-11-16 18:32 | DRG 871 ==
LOC: ER 10:57 → MEDSG1 16:07
PROVIDERS: ADMIT Nurse Practitioner Acute Care; ATTEND Nurse Practitioner Acute Care
PROC: 02HV33Z Insertion of Infusion Device into Superior Vena Cava, Percutaneous Approach (ICD-10-PCS; principal; 2017-11-12)
PROC: 30233N1 Transfusion of Nonautologous Red Blood Cells into Peripheral Vein, Percutaneous Approach (ICD-10-PCS; 2017-11-13)
DX: A41.9 Sepsis, unspecified organism (principal); N17.0 Acute kidney failure with tubular necrosis; G92 Toxic encephalopathy; E87.2 Acidosis; E44.0 Moderate protein-calorie malnutrition; D61.818 Other pancytopenia; D69.6 Thrombocytopenia, unspecified; E11.65 Type 2 diabetes mellitus with hyperglycemia; E83.42 Hypomagnesemia; N39.0 Urinary tract infection, site not specified; K92.2 Gastrointestinal hemorrhage, unspecified; R65.20 Severe sepsis without septic shock; D50.9 Iron deficiency anemia, unspecified; D63.8 Anemia in other chronic diseases classified elsewhere; E53.8 Deficiency of other specified B group vitamins; E78.5 Hyperlipidemia, unspecified; E86.0 Dehydration; E87.6 Hypokalemia; I10 Essential (primary) hypertension; Z87.891 Personal history of nicotine dependence; Z85.3 Personal history of malignant neoplasm of breast; I70.0 Atherosclerosis of aorta; G89.29 Other chronic pain; Z90.10 Acquired absence of unspecified breast and nipple; Z79.899 Other long term (current) drug therapy; R62.7 Adult failure to thrive; B96.89 Other specified bacterial agents as the cause of diseases classified elsewhere; F03.90 Unspecified dementia, unspecified severity, without behavioral disturbance, psychotic disturbance, mood disturbance, and anxiety
CPT/HCPCS: 36415; 71045-TC; 76642-TC; 76700-TC; 80048-TC; 80061-TC; 80076-TC; 81000-TC; 82272-TC; 82746; 82784; 83540-TC; 83605-TC; 83735-TC; 84100-TC; 84155; 84165; 84443-TC; 84484-TC; 85025-TC; 85027-TC; 85385-TC; 85610-TC; 85730-TC; 86300; 86334; 86850-TC; 86921-TC; 87040-TC; 87081-TC; 87086-TC; 87186-TC; A4216; A4606; J0696; J1650; J2916; J3420; J3475; J7030; J7050; J7060; P9016-BL; Z7610